=== PATIENT | female | born 1950 | race Caucasian/White ===

== ENCOUNTER 2016-08-03 14:08 | Inpatient (IN) | payer OTHER, MEDICARE ==
[~2016-08-03] VITALS: Ht 154.9 cm; Wt 79.2 kg
[~2016-08-03 14:08] MED LIST: AMERGE2.5 MG PO; ASPIRIN325 MG PO; BEET ROOT PO; CALCIUM-MAGNES1 EAC3 PO; CERTAVITE SR-AN1 TAB PO; CLARITIN10 MG PO; HALFPRIN81 MG PO; MELATONIN5 M4 PO; MOBIC15 MG PO; OMEPRAZOLE10 MG PO; PROGESTERONE200 MG PO; SYNTHROID125 MCG PO; ULTRAM50 MG PO; VITAMIN C1000 MG PO; VITAMIN D31000 UNI1 PO
[2016-08-03] MEDS ORDERED: MOBIC15 MG PO (14:22)
[2016-08-03] MEDS ORDERED: BENADRYL25 M1 PO (14:22)
[2016-08-03] MEDS ORDERED: ULTRAM50 MG PO (14:23)
== END 2016-08-04 11:20 | disposition short-term general hospital (02) | DRG 392 ==
LOC: OBS 14:08 → IP 14:08
PROVIDERS: ADMIT Family Medicine
PROC: 0DP6XUZ Removal of Feeding Device from Stomach, External Approach (ICD-10-PCS; principal; 2016-08-03)
DX: K52.9 Noninfective gastroenteritis and colitis, unspecified (principal); E86.0 Dehydration; E03.9 Hypothyroidism, unspecified; M54.31 Sciatica, right side; G47.00 Insomnia, unspecified; G47.33 Obstructive sleep apnea (adult) (pediatric); J30.9 Allergic rhinitis, unspecified; E55.9 Vitamin D deficiency, unspecified; M41.9 Scoliosis, unspecified
CPT/HCPCS: J2270; J2405